=== PATIENT | male | born 1950 | race Hispanic/Latino ===

== ENCOUNTER 2020-04-29 12:38 | Emergency (ER) | payer MEDICARE ==
[~2020-04-29] VITALS: Ht 167.6 cm; Wt 73.5 kg
--- NOTE | 2020-04-29 12:42 | Emergency Department Note ---
History of Present Illnes History of Present Illness Chief Complaint: SOB History of Present Illness This is a 70 year old male with a history of hyperlipidemia, remote myocardial infarction, and NIDDM who presents with a 10 day history of progressive worsening shortness of breath. History is obtained primarily from his daughter, who is a nurse for Dr. Karthik Pearson, as patient speaks little [place]. Patient's daughter states that she took him to the [facility] in [place] 10 days ago, with body aches, fever, and dry cough, and they tested him for Covid 19. It was a rapid test, and and his test came back positive. Patient was instructed to self quarantine, and no medication was prescribed. Patient's cough has continued to worsen, he has become weak and he has had nausea, without vomiting. He has not had any fever for the past 3 days. He denies any chest pain, but he does feel short of breath, mostly with exertion. Patient has not had any vomiting, headache, chest pain or diarrhea. Patient's daughter, who is providing the history, tested positive for Covid, as did patient's , who is currently admitted at [facility] on oxygen, with Covid pneumonia. Historian: Patient, Family Member (daughter) Arrival Mode: Car Appeals Reviewer Veteran Required: Yes (Patient's daughter) Onset (how long ago): day(s) (10) Location: chest Quality: short of breath Radiation: Reports non-radiation Severity: moderate Onset quality: gradual Duration (how long): day(s) (10) Timing of current episode: constant Progression: worsening Chronicity: new Context: Reports recent illness (diagnosed with COVID 19 10 days ago) Relieving factors: none Exacerbating factors: movement Associated symptoms: Reports cough, Reports loss of appetite, Reports malaise, Reports shortness of breath, Reports weakness; Denies chest pain, Denies fever/chills, Denies nausea/vomiting Treatments prior to arrival: other (Albuterol MDI) Risk factors: DM, known COVID 19 infection Previous service: tests performed Past Medical/Family History Physician Review I have reviewed the patient's past medical and family history. Any updates have been documented here. Past Medical History Recent Fever: No (Non x 3 days) Clinical Suspicion of Infectio: Yes New/Unexplained Change in Ment: No Past Medical History: Diabetes (NIDDM), CAD (s/p AL), Hyperlipedemia Past Surgical History: Appendectomy Social History Smoking Cessation: Never Smoker Alcohol Use: Occasional Any Illegal Drug Use: No TB Exposure/Symptoms: No Physically hurt or threatened: No Family History Family history of heart diseas: No Other Last Tetanus: unknown Any Pre-Existing Lines (PICC,: No Is patient up to date on immun: No Review of Systems Review of Systems Constitutional: Reports malaise, Reports weakness; Denies chills, Denies fever EENTM: Reports no symptoms Cardiovascular: Reports no symptoms; Denies chest pain, Denies edema, Denies palpitations Respiratory: Reports cough, Reports dyspnea, Reports dyspnea on exertion; Denies pain with cough Gastrointestinal: Reports nausea; Denies abdominal pain, Denies diarrhea, Denies vomiting Genitourinary: Denies dysuria, Denies frequency Musculoskeletal: Denies muscle stiffness, Denies neck pain Integumentary: Denies change in color, Denies rash Neurological: Reports no symptoms Psychological: Reports no symptoms Review of other systems: All other systems negative Physical Exam Related Data Allergies: Coded Allergies: No Known Allergies (Unverified , 04/29/20) Vital signs reviewed: Yes Physical Exam CONSTITUTIONAL Constitutional: Present well-developed, Present well-nourished; Absent distressed, Absent ill appearing HENT HENT: Present normocephalic, Present atraumatic, Present oropharynx clear/moist, Present nose normal HENT L/R: Present left ext ear normal, Present right ext ear normal EYES Eyes: Reports PERRL, Reports conjunctivae normal NECK Neck: Present ROM normal PULMONARY Pulmonary: Present effort normal, Present other (decreased BS at bases) CARDIOVASCULAR Cardiovascular: Present regular rhythm, Present heart sounds normal, Present capillary refill normal, Present normal rate GASTROINTESTINAL Abdominal: Present soft, Present nontender, Present bowel sounds normal; Absent tender, Absent guarding GENITOURINARY Genitourinary: Present exam deferred SKIN Skin: Present warm, Present dry; Absent rash MUSCULOSKELETAL Musculoskeletal: Present ROM normal; Absent tenderness NEUROLOGICAL Neurological: Present alert, Present oriented x 3, Present no gross motor or sensory deficits PSYCHOLOGICAL Psychological: Present mood/affect normal, Present judgement normal Results Laboratory Laboratory CBC - nl except for plt = 116 CMP -glucose = 267, Cl = 94, Cr = 1.5, BUN = 24; BNP = 29.7; UA - gluc = 500 mg/dl, pro = 100 mg/dl Cardiacs - negative; D - dimer - negative; Lab results reviewed: Yes Imaging Imaging results reviewed: Yes Impressions [place] [address] Patient Name: LEISA WALKER MR #: [id number] 3 : 1950 Age/Sex: 70/M Req #: [id number] Adm Physician: Ordered by: PIPER SAXENA MD Report #: [id number] Location: [facility] Room/Bed: Procedure: [id number] HOPD/CXR 1 VEW - HOPD Exam Date: 04/29/20 Exam Time: 1338 REPORT STATUS: Signed EXAMINATION: CXR 1 VEW - HOPD INDICATION: Shortness of breath COMPARISON: None FINDINGS: LINES/TUBES:None LUNGS:The lungs are moderately inflated. Mild left basilar opacities. PLEURA:No pleural effusion or pneumothorax. MEDIASTINUM:The cardiomediastinal silhouette appears normal in size and shape. BONES/SOFT TISSUES:No acute osseous injury. Sternotomy wires in place. ABDOMEN:No free air under the diaphragm. IMPRESSION: Mild left basilar opacities may represent subsegmental atelectasis or alternatively mild pneumonitis in the setting of known viral pneumonia. Signed by: Luis Manuel Pritchard MD on 04/29/2020 1:44 PM Dictated By: LUIS MANUEL PRITCHARD MD [id number] Transcribed By: PATRICIA on 04/29/20 1340 COPY TO: PIPER SAXENA MD~ Diagnostics Tests Diagnostic test(s) reviewed: Yes Procedures 12 Lead ECG Interpretation ECG Interpretation : ECG: ECG 1 Appeals Reviewer Veteran: Interpreted by ED physician Date: Apr 29, 2020 Time: 12:53 Prior ECG tracings: not available for review Rhythm: sinus tachycardia Rate: tachycardia (101) QRS axis: normal Conduction: LPFB ST segments normal: Yes T waves normal: Yes Q waves: III, aVR, V1, V2, V3 Clinical Impression: abnormal ECG Assessment & Plan Medical Decision Making MDM - Discussed results of lab work and chest x-ray with patient and daughter. Explained that he does appear to have Kovic pneumonia, but he is not hypoxic or in any respiratory distress. His labs are good, and a slightly low platelet count. Explained that we will treat patient with Zithromax for community- acquired pneumonia and he is instructed to drink plenty of fluids, at least 8 bottles of water per day, to eat, rest, and to return to the emergency room if he develops difficulty breathing or worsening shortness of breath. Explained to patient and daughter, that he is at high risk for deterioration, they should bring him back to the ED for reevaluation, if he is not improving. Patient daughter voice understanding the plan - Also advise that they should check patient's blood sugars at least twice daily, and he should follow low carbohydrate diet and take his diabetic medications to prevent recurrent elevated readings. This will help his condition improved, as well. His daughter states that they will obtain a glucometer and test strips. - Patient should continue using his inhaler, 2 puffs every 4 hours as needed for cough. Assessment & Plan Final Impression: (1) Pneumonia due to COVID-19 virus (2) Shortness of breath (3) Hyperglycemia due to diabetes mellitus Depart Disposition: HOME, SELF-custodial Meds Active Scripts Albuterol Sulf* (PROAIR HFA INHALER*) 8.5 Gm Inh, 2 PUMP INH Q4H PRN for cough, #1 INH 0 Refills Prov:PIPER SAXENA MD 04/29/20 Azithromycin (ZITHROMAX) 250 Mg Tablet, 2 TAB PO DAILY for covid pneumonia for 5 Days, #6 TAB Prov:PIPER SAXENA MD 04/29/20 PIPER SAXENA MD Apr 29, 2020 12:42
--- NOTE | 2020-04-29 13:47 | Diagnostic Imaging Report ---
EXAMINATION: CXR 1 VEW - HOPD INDICATION: Shortness of breath COMPARISON: None FINDINGS: LINES/TUBES:None LUNGS:The lungs are moderately inflated. Mild left basilar opacities. PLEURA:No pleural effusion or pneumothorax. MEDIASTINUM:The cardiomediastinal silhouette appears normal in size and shape. BONES/SOFT TISSUES:No acute osseous injury. Sternotomy wires in place. ABDOMEN:No free air under the diaphragm. IMPRESSION: Mild left basilar opacities may represent subsegmental atelectasis or alternatively mild pneumonitis in the setting of known viral pneumonia. Signed by: Maryan Morel MD on 04/29/2020 1:44 PM
[2020-04-29 14:45] VITALS: BP 157/78
[2020-04-29] MEDS ORDERED: AZITHROMYCIN 250 MG TAB ONE (15:04)
[2020-04-29] MEDS ORDERED: ZITHROMAX250 MG PO (15:06)
[2020-04-29] MEDS ORDERED: PROAIR HFA INH8.5 GM INH (15:11)
[2020-04-30] MEDS ORDERED: AZITHROMYCIN 250 MG TAB PO SCH (09:00)
== END 2020-04-29 15:21 | disposition home or self-care (01) ==
LOC: FSED 12:38
DX: U07.1 COVID-19 (principal); J18.9 Pneumonia, unspecified organism; E11.65 Type 2 diabetes mellitus with hyperglycemia; R06.02 Shortness of breath; I10 Essential (primary) hypertension; E78.5 Hyperlipidemia, unspecified; E03.9 Hypothyroidism, unspecified; I25.2 Old myocardial infarction
CPT/HCPCS: 71045; 80053; 82553; 83880; 84484; 85025; 85379; 93005; 99284